=== PATIENT | female | born 1945 | race Caucasian/White ===

== ENCOUNTER → 2018-07-01 | Outpatient (CLI) | payer OTHER | END | disposition home or self-care (01) | LOC: LAB 07:27 | PROVIDERS: ATTEND Internal Medicine | DX: R51 Headache (principal); Z83.2 Family history of diseases of the blood and blood-forming organs and certain disorders involving the immune mechanism | CPT/HCPCS: 85302 ==

== ENCOUNTER → 2018-10-07 | Outpatient (CLI) | payer OTHER ==
[2018-10-07 13:32] LABS: Basophils # (auto) 0 uL; Basophils % (auto) 0.6 % (0.0-2.0); Eosinophils # (auto) 0.1 uL; Eosinophils % (auto) 1.8 % (0.0-7.0); Hematocrit 42.1 % (36.0-46.0); Hemoglobin 14.1 g/dL (12.2-16.2); Lymphocytes # (auto) 1.3 uL; Lymphocytes % (auto) 32.9 % (10.0-50.0); Mean Corpuscular Hemoglobin 30.7 pg (28.0-32.0); Mean Corpuscular Hgb Conc. 33.6 g/dL (32.0-36.0); Mean Corpuscular Volume 91.3 fL (80.0-100.0); Monocytes # (auto) 0.3 uL; Monocytes % (auto) 8.3 % (0.0-12.0); Neutrophils # (auto) 2.2 uL; Neutrophils % (auto) 56.4 % (37.0-80.0); Nucleated Red Blood Cells % 0.2 %; Platelet Count (auto) 232 10^3/uL (140-450); Red Blood Cells 4.61 10^6/uL (4.0-5.20); White Blood Cell 3.9 10^3/uL (4.4-10.8)
[2018-10-07 14:15] LABS: Potassium 4.1 mmol/L (3.5-5.1)
[2018-10-07 14:24] LABS: Albumin 4.1 g/dL (3.4-5.0); Bilirubin, Total 0.5 mg/dL (0.2-1.0); CRP High Sensitivity 0.37 mg/dL (< 0.3); Calcium 8.9 mg/dL (8.5-10.1); Total Protein 7.4 g/dL (6.4-8.2)
== END | disposition home or self-care (01) ==
LOC: LAB 11:21
PROVIDERS: ATTEND Internal Medicine
DX: M06.9 Rheumatoid arthritis, unspecified (principal); M79.10 Myalgia, unspecified site
CPT/HCPCS: 36415; 80053; 82550; 85025; 85652; 86141

== ENCOUNTER → 2019-01-13 | Outpatient (CLI) | payer OTHER ==
[2019-01-13 11:28] LABS: Band Neutrophils % (manual) 0; Basophils % (manual) 0 (0.0-2.0); Blast Cells 0; Metamyelocytes % 0; Myelocytes % 0; Promyelocytes % 0; Reactive Lymphocytes 0
[2019-01-13 11:40] LABS: Basophils # (auto) 0 uL; Eosinophils # (auto) 0.1 uL; Eosinophils % (auto) 2.6 % (0.0-7.0); Hematocrit 42.4 % (36.0-46.0); Hemoglobin 14.4 g/dL (12.2-16.2); Lymphocytes # (auto) 1.1 uL; Lymphocytes % (auto) 28.5 % (10.0-50.0); Mean Corpuscular Hemoglobin 30.7 pg (28.0-32.0); Mean Corpuscular Hgb Conc. 33.9 g/dL (32.0-36.0); Mean Corpuscular Volume 90.8 fL (80.0-100.0); Monocytes # (auto) 0.3 uL; Monocytes % (auto) 7.5 % (0.0-12.0); Neutrophils # (auto) 2.4 uL; Neutrophils % (auto) 60.4 % (37.0-80.0); Platelet Count (auto) 211 10^3/uL (140-450); Red Blood Cells 4.68 10^6/uL (4.0-5.20); Red Cell Distribution Width 13.2 % (11.8-14.3)
[2019-01-13 12:33] LABS: Albumin 4.4 g/dL (3.4-5.0); Potassium 3.9 mmol/L (3.5-5.1)
[2019-01-13 12:40] LABS: Bilirubin, Total 0.5 mg/dL (0.2-1.0); Calcium 8.9 mg/dL (8.5-10.1); Total Protein 7.9 g/dL (6.4-8.2)
[2019-01-13 13:01] LABS: % Iron Saturation 28.3 % (15-50)
[2019-01-13 13:12] LABS: Folate (Folic Acid) > 24.00 ng/mL (5.38-24)
[2019-01-13 13:48] LABS: Free T4 (Free Thyroxine) 1.41 ng/dL (0.89-1.76)
[2019-01-13 13:49] LABS: Ferritin 142.2 ng/mL (10-322)
[2019-01-13 15:17] LABS: Eosinophils % (manual) 4 (0-7); Lymphocytes % (manual) 22 (10.0-50.0); Monocytes % (manual) 9 (0-12)
[2019-01-13 17:50] LABS: Nucleated Red Blood Cells % 0.2 %
== END | disposition home or self-care (01) ==
LOC: LAB 11:08
PROVIDERS: ATTEND Internal Medicine
DX: D72.819 Decreased white blood cell count, unspecified (principal)
CPT/HCPCS: 36415; 80053; 82607; 82668; 82728; 82746; 83010; 83540; 83550; 83615; 84436; 84439; 84443; 85025; 85045; 85652; 86038; 86880; 86885

== ENCOUNTER → 2019-06-13 | Outpatient (CLI) | payer OTHER ==
[2019-06-13 09:16] LABS: Basophils # (auto) 0.1 uL; Basophils % (auto) 1.6 % (0.0-2.0); Eosinophils # (auto) 0.1 uL; Eosinophils % (auto) 2.4 % (0.0-7.0); Hematocrit 41.6 % (36.0-46.0); Hemoglobin 13.8 g/dL (12.2-16.2); Lymphocytes # (auto) 0.8 uL; Lymphocytes % (auto) 24.3 % (10.0-50.0); Mean Corpuscular Hemoglobin 30.4 pg (28.0-32.0); Mean Corpuscular Hgb Conc. 33.2 g/dL (32.0-36.0); Mean Corpuscular Volume 91.5 fL (80.0-100.0); Monocytes # (auto) 0.3 uL; Monocytes % (auto) 8.4 % (0.0-12.0); Neutrophils # (auto) 2.1 uL; Neutrophils % (auto) 63.3 % (37.0-80.0); Nucleated Red Blood Cells % 0.1 %; Platelet Count (auto) 228 10^3/uL (140-450); Red Blood Cells 4.55 10^6/uL (4.0-5.20); Red Cell Distribution Width 12.8 % (11.8-14.3); White Blood Cell 3.3 10^3/uL (4.4-10.8)
[2019-06-13 09:22] LABS: Urine Bacteria NONE SEEN /hpf (None Seen); Urine Blood Negative /uL (Negative); Urine WBC 1 /hpf (0 - 5)
[2019-06-13 09:38] LABS: Potassium 4.2 mmol/L (3.5-5.1)
[2019-06-13 09:50] LABS: BUN/Creatinine Ratio 18.9; Bilirubin, Total 0.5 mg/dL (0.2-1.0); Calcium 9.2 mg/dL (8.5-10.1); Total Protein 7.3 g/dL (6.4-8.2)
== END | disposition home or self-care (01) ==
LOC: LAB 07:52
PROVIDERS: ATTEND Internal Medicine
DX: R42 Dizziness and giddiness (principal); I10 Essential (primary) hypertension
CPT/HCPCS: 36415; 80053; 80061; 81001; 82043; 84439; 84443; 85025; 85652

== ENCOUNTER → 2019-07-21 | Outpatient (CLI) | payer OTHER ==
[2019-07-21 11:59] LABS: Basophils # (auto) 0 uL; Basophils % (auto) 0.7 % (0.0-2.0); Eosinophils # (auto) 0.1 uL; Eosinophils % (auto) 2.6 % (0.0-7.0); Hematocrit 41.1 % (36.0-46.0); Lymphocytes # (auto) 1.1 uL; Lymphocytes % (auto) 23.9 % (10.0-50.0); Mean Corpuscular Hemoglobin 30.8 pg (28.0-32.0); Mean Corpuscular Hgb Conc. 34.1 g/dL (32.0-36.0); Mean Corpuscular Volume 90.4 fL (80.0-100.0); Monocytes # (auto) 0.3 uL; Monocytes % (auto) 7.5 % (0.0-12.0); Neutrophils # (auto) 2.9 uL; Neutrophils % (auto) 65.3 % (37.0-80.0); Nucleated Red Blood Cells % 0.1 %; Platelet Count (auto) 242 10^3/uL (140-450); Red Blood Cells 4.54 10^6/uL (4.0-5.20); Red Cell Distribution Width 12.9 % (11.8-14.3); White Blood Cell 4.4 10^3/uL (4.4-10.8)
[2019-07-21 12:21] LABS: Albumin 4.2 g/dL (3.4-5.0); BUN/Creatinine Ratio 30.5; Bilirubin, Total 0.5 mg/dL (0.2-1.0); Calcium 9.1 mg/dL (8.5-10.1); Total Protein 7.5 g/dL (6.4-8.2)
== END | disposition home or self-care (01) ==
LOC: LAB 11:26
PROVIDERS: ATTEND Internal Medicine
DX: D72.819 Decreased white blood cell count, unspecified (principal)
CPT/HCPCS: 36415; 80053; 83615; 85025

== ENCOUNTER → 2019-09-14 | Outpatient (CLI) | payer OTHER ==
[2019-09-14 11:25] LABS: INR 0.94 (0.9-1.15)
== END | disposition home or self-care (01) ==
LOC: LAB 10:44
PROVIDERS: ATTEND Internal Medicine
DX: Z01.818 Encounter for other preprocedural examination (principal); Z01.84 Encounter for antibody response examination
CPT/HCPCS: 36415; 85610; 86765

== ENCOUNTER → 2019-10-05 | Outpatient (CLI) | payer OTHER ==
[2019-10-05 09:50] LABS: BUN/Creatinine Ratio 28.2; Calcium 8.8 mg/dL (8.5-10.1); Potassium 3.8 mmol/L (3.5-5.1)
== END | disposition home or self-care (01) ==
LOC: LAB 09:14
PROVIDERS: ATTEND Internal Medicine
DX: R01.1 Cardiac murmur, unspecified (principal); R60.9 Edema, unspecified
CPT/HCPCS: 36415; 80048; 83880

== ENCOUNTER → 2019-10-05 | Outpatient (CLI) | payer OTHER | END | disposition home or self-care (01) | LOC: XYW 07:30 | PROVIDERS: ATTEND Internal Medicine | DX: I08.2 Rheumatic disorders of both aortic and tricuspid valves (principal); I11.9 Hypertensive heart disease without heart failure; I25.10 Atherosclerotic heart disease of native coronary artery without angina pectoris; R94.39 Abnormal result of other cardiovascular function study; M19.90 Unspecified osteoarthritis, unspecified site; I49.8 Other specified cardiac arrhythmias | CPT/HCPCS: 93306 ==

== ENCOUNTER 2020-01-23 05:59 | Inpatient (IN) | payer OTHER ==
[~2020-01-23] VITALS: Ht 165.1 cm; Wt 103.1 kg
[2020-01-23] VITALS (19 sets, daily range): BP systolic 115–161; BP diastolic 49–92
[~2020-01-23 05:59] MED LIST: APPL300T3 PO; BACL5TAB2 PO; CETI1TAB36 PO; COEN100C15 PO; KRIL1CAP11 PO; LISI-646 PO; MELA3TAB27 PO; OMEP20TA PO; SIMV10TA84 PO; TURM500C3 PO; VERA120T89 PO; [UNRECOGNIZED DRUG - CODE] PO
[2020-01-23] MEDS ORDERED: GENTAMICIN SULF 80 MG/2 ML VIAL ONE (07:09)
[2020-01-23] MEDS ORDERED: VANCOMYCIN HCL 1000 MG VL ONE ×2 (07:09→07:11)
[2020-01-23] MEDS ORDERED: BUPIVACAINE W/ EPINEPH 0.25% INJ 50ML MDV ONE (07:10)
[2020-01-23] MEDS ORDERED: TRANEXAMIC ACID 20 ML ONE (07:10)
[2020-01-23] MEDS ORDERED: KETOROLAC TROMETH 15 mg/ml 1ML VL ONE (07:11)
[2020-01-23] MEDS ORDERED: MORPHINE SULF(PF) 0.5MG/ML 10ML VIAL ONE ×2 (07:13→07:25)
[2020-01-23] MEDS ORDERED: ACETAMINOPHEN IV 100 ML IV ONE (07:13)
[2020-01-23] MEDS ORDERED: CELECOXIB 100 MG CAP ONE (07:14)
[2020-01-23] MEDS ORDERED: PREGABALIN CAPSULE 75 MG CAP ONE (07:14)
[2020-01-23] MEDS ORDERED: ACETAMINOPHEN IV 1000 MG/100ML (10MG/ML) IV ONE (07:15)
[2020-01-23] MEDS ORDERED: CELECOXIB 100 MG CAP PO ONE (07:15)
[2020-01-23] MEDS ORDERED: PREGABALIN CAPSULE 75 MG CAP PO ONE (07:15)
[2020-01-23] MEDS ORDERED: TETRACAINE 1% INJ 2 ML VIAL IJ ONE (07:16)
[2020-01-23] MEDS ORDERED: LIDOCAINE 1% HCL (LOCAL ANESTH.) INJ 20ML MDV ONE (07:21)
[2020-01-23] MEDS ORDERED: SUCCINYLCHOLINE CHLORIDE 20 MG/ML 10ML VIAL IV ONE (07:22)
[2020-01-23] MEDS ORDERED: MIDAZOLAM HCL 1MG/1ML-2 ML VIAL ONE (07:24)
[2020-01-23] MEDS ORDERED: METOCLOPRAMIDE HCL 5MG/ml INJ 2ml VIAL ONE (07:29)
[2020-01-23] MEDS ORDERED: ePHEDrine SULFATE 50 MG/ML AMP ONE (07:42)
[2020-01-23] MEDS ORDERED: STERILE WATER 10 ML ONE ×2 (07:42→08:31)
[2020-01-23] MEDS ORDERED: PROPOFOL 10 MG/ML 20 ML IV ONE (07:52)
[2020-01-23] MEDS ORDERED: diphenhdrAMINE HCL 50 MG/1 ML VL ONE (07:59)
[2020-01-23] MEDS ORDERED: ONDANSETRON HCL 4 MG/2 ML VIAL IV PRN ×3 (08:15→10:00)
[2020-01-23] MEDS ORDERED: ePHEDrine SULFATE 50 MG/ML AMP IV PRN (08:15)
[2020-01-23] MEDS ORDERED: HYDROmorphone HCL 2 MG/ML VL IV PRN ×2 (08:15→10:00)
[2020-01-23] MEDS ORDERED: diphenhdrAMINE HCL 50 MG/1 ML VL IV PRN (08:15)
[2020-01-23] MEDS ORDERED: NALOXONE HCL 0.4 MG/ML VIAL IV PRN ×2 (08:15)
[2020-01-23] MEDS ORDERED: PHENYLEPHRINE HCL 10 MG/ML VL ONE (08:31)
[2020-01-23] MEDS: ENOXAPARIN SOD 40 MG/0.4 ML SYRINGE SC SCH (10:00)
[2020-01-23] MEDS: LISINOPRIL 20 MG TAB PO SCH (10:00)
[2020-01-23] MEDS: DOCUSATE SOD 100 MG CAP PO SCH ×2 (10:00→21:27)
[2020-01-23] MEDS ORDERED: VANCOMYCIN 1GM/250ML 250 ML IV SCH (10:00)
[2020-01-23] MEDS ORDERED: MORPHINE SULF INJ 2 MG/ML SYRINGE 1ML IV PRN (10:00)
[2020-01-23] MEDS ORDERED: NITROGLYCERIN 0.4 MG SL TAB SL PRN (10:00)
[2020-01-23] MEDS: [UNRECOGNIZED DRUG - REMARK] PO SCH (10:00)
[2020-01-23] MEDS ORDERED: ACETAMINOPHEN 325 MG TAB PO PRN (10:00)
[2020-01-23] MEDS ORDERED: BACLOFEN 10 MG TAB PO PRN (10:30)
[2020-01-23] MEDS: LACTATED RINGER'S 1,000 ML IV SCH ×2 (11:45→21:45)
[2020-01-23] MEDS: VANCOMYCIN 1GM/250ML 250 ML IV SCH (18:12)
[2020-01-23] MEDS: PROMETHAZINE HCL 25 MG/ML 1ML IV PRN (18:12)
[2020-01-23] MEDS: PRAVASTATIN SODIUM 20 MG TAB PO SCH (21:45)
[2020-01-24] VITALS (20 sets, daily range): BP systolic 97–141; BP diastolic 46–67
[2020-01-24] MEDS: OXYCODONE W/ ACETAMINOPHEN 5/325MG TABLET PO PRN ×4 (03:51→18:46)
[2020-01-24] MEDS: LACTATED RINGER'S 1,000 ML IV SCH ×2 (05:18→05:20)
[2020-01-24 05:42] LABS: Hematocrit 33.8 % (36.0-46.0); Hemoglobin 11.7 g/dL (12.2-16.2)
[2020-01-24 06:03] LABS: Potassium 3.5 mmol/L (3.5-5.1)
[2020-01-24 06:09] LABS: Albumin 2.8 g/dL (3.4-5.0); Calcium 8.5 mg/dL (8.5-10.1)
[2020-01-24 06:17] LABS: Bilirubin, Total 0.5 mg/dL (0.2-1.0); Total Protein 5.9 g/dL (6.4-8.2)
[2020-01-24] MEDS: VANCOMYCIN 1GM/250ML 250 ML IV SCH (07:17)
[2020-01-24 07:21] LABS: BUN/Creatinine Ratio 15.5
[2020-01-24] MEDS: PANTOPRAZOLE 40 MG TAB PO SCH (09:02)
[2020-01-24] MEDS: DOCUSATE SOD 100 MG CAP PO SCH ×2 (09:02→21:50)
[2020-01-24] MEDS: ENOXAPARIN SOD 40 MG/0.4 ML SYRINGE SC SCH (09:03)
[2020-01-24] MEDS: [UNRECOGNIZED DRUG - REMARK] PO SCH (10:00)
[2020-01-24] MEDS: VERAPAMIL HCL 120 mg ER tab PO SCH ×2 (11:07→21:49)
[2020-01-24] MEDS: LISINOPRIL 20 MG TAB PO SCH (11:09)
[2020-01-24] MEDS: PROMETHAZINE HCL 25 MG/ML 1ML IV PRN (21:15)
[2020-01-24] MEDS: PRAVASTATIN SODIUM 20 MG TAB PO SCH (21:50)
[2020-01-25 05:00] VITALS: BP 143/56
[2020-01-25] MEDS ORDERED: METOCLOPRAMIDE HCL 5MG/ml INJ 2ml VIAL IV PRN (07:45)
[2020-01-25 09:00] LABS: Hemoglobin 11.3 g/dL (12.2-16.2)
[2020-01-25 09:04] VITALS: BP 147/53
[2020-01-25] MEDS: [UNRECOGNIZED DRUG - REMARK] PO SCH (10:00)
[2020-01-25] MEDS: ENOXAPARIN SOD 40 MG/0.4 ML SYRINGE SC SCH (10:02)
[2020-01-25] MEDS: OXYCODONE W/ ACETAMINOPHEN 5/325MG TABLET PO PRN (10:03)
[2020-01-25] MEDS: DOCUSATE SOD 100 MG CAP PO SCH (10:03)
[2020-01-25] MEDS: PROMETHAZINE HCL 25 MG/ML 1ML IV PRN (10:03)
[2020-01-25] MEDS: VERAPAMIL HCL 120 mg ER tab PO SCH (10:04)
[2020-01-25] MEDS: PANTOPRAZOLE 40 MG TAB PO SCH (10:04)
[2020-01-25] MEDS: LISINOPRIL 20 MG TAB PO SCH (10:04)
[2020-01-25 11:21] VITALS: BP 145/64
[2020-01-25 12:33] VITALS: BP 145/64
== END 2020-01-25 12:23 | DRG 470 ==
LOC: SUR 05:59 → TELE-CENTR 12:01
PROVIDERS: ADMIT Orthopaedic Surgery Adult Reconstructive Orthopaedic Surgery; ATTEND Orthopaedic Surgery Adult Reconstructive Orthopaedic Surgery
PROC: 0SR906Z Replacement of Right Hip Joint with Oxidized Zirconium on Polyethylene Synthetic Substitute, Open Approach (ICD-10-PCS; principal; 2020-01-23 07:25)
DX: M16.11 Unilateral primary osteoarthritis, right hip (principal); K21.9 Gastro-esophageal reflux disease without esophagitis; I10 Essential (primary) hypertension; E66.9 Obesity, unspecified; E78.5 Hyperlipidemia, unspecified; Z68.37 Body mass index [BMI] 37.0-37.9, adult; Z88.0 Allergy status to penicillin; Z90.710 Acquired absence of both cervix and uterus; Z82.49 Family history of ischemic heart disease and other diseases of the circulatory system
CPT/HCPCS: 36415; 72170; 80053; 85014; 85018; 86850; 86900; 86901; 97110; 97116; 97163; 97530; A4565; C1776; G0378; J0131; J0330; J2001; J2250; J2704